=== PATIENT | male | born 2000 ===

== ENCOUNTER 2023-10-21 12:31 | Emergency (ER) | payer SELFPAY ==
[2023-10-21 12:32] VITALS: BP 152/89; PULSE 100; RESP 18; TEMP 36.7; O2SAT 100
== END 2023-10-21 12:42 | disposition left against medical advice (07) ==
LOC: ANHED 12:40
DX: Z53.21 Procedure and treatment not carried out due to patient leaving prior to being seen by health care provider (principal)
CPT/HCPCS: 99199